=== PATIENT | male | born 1945 | race Caucasian/White ===

== ENCOUNTER → 2023-12-11 | Outpatient (CLI) | payer OTHER, SELFPAY ==
--- NOTE | 2023-12-11 08:39 | DI.ECHO.S_ITS ---
[facility] : : [address] : : [place] : : [id number] : : Phone: [phone] Echocardiogram Report + + :Name: BOLA SWARTZ Study Date: 12/11/2023 Height: 70 in : :[facility] ReadingLocation: Weight: 238 lb : : Gender: Male BSA: 2.2 m2 : :: 1945 Age: 78 yrs BP: 117/66 mmHg: :Reason For Study: CORONARY ARTERY DISEASE : :Ordering Physician: ZOHRA, : :DILIP Performed By: Kelsea Grigsby : :Referring: LEAH RUANO : + + Interpretation Summary Largely normal echocardiogram with minimal age related changes. Normal biventricular size and function with normal echocardiogram. No significant valvular abnormalities. No previous echo images are available for comparison. Procedure: A two-dimensional transthoracic echocardiogram with color flow and Doppler was performed. The study quality was technically adequate. There is no prior echocardiogram noted for this patient. A contrast injection of Definity was performed to improve assessment of LV function. The patient was in sinus bradycardia with heart rates between 55-63 bpm during the exam. Left Ventricle: The left ventricle is normal in size and wall thickness. The ejection fraction is estimated to be 60-65%. Left ventricular wall motion is normal. Right Ventricle: The right ventricle is normal in size and function. There is normal right ventricular wall thickness. The right ventricular systolic function is normal. Atria: The left atrial size is normal. Right atrial size is normal. There is no Doppler evidence for an interatrial shunt. Mitral Valve: The mitral valve is normal in structure and function. There is no mitral regurgitation noted. Aortic Valve: The aortic valve is trileaflet. The aortic valve opens well. There is no aortic valve stenosis. No aortic regurgitation is present. Tricuspid Valve: The tricuspid valve is normal in structure and function. There is trace tricuspid regurgitation. Pulmonary artery pressures cannot be estimated because of the lack of a measurable TR jet velocity. Pulmonic Valve: The pulmonic valve leaflets are thin and pliable; valve motion is normal. There is trace pulmonic regurgitation. Great Vessels: The aortic root is normal size. The dimensions of the ascending aorta are normal. The IVC is of normal diameter and collapses greater than 50% with a sniff. This suggests a low right atrial pressure of 3 mm Hg. Pericardium/ Pleura There is no pericardial effusion. There is no pleural effusion. MMode/2D Measurements & Calculations LVIDd: 4.3 cm LVOT diam: 2.1 cm LVIDs: 3.0 cm Ao root diam: 2.8 cm FS: 31.2 % asc Aorta Diam: 3.5 cm IVSd: 1.0 cm Ao Arch Diam (Prox Trans): 3.3 cm LVPWd: 0.96 cm LV alvarez. diameter/BSA (cm/m^2): 1.9 LV sys. diameter/BSA (cm/m^2): 1.3 LA A2 area: 19.8 cm2 RA long axis: 4.6 cm LA A4 area: 16.5 cm2 RA area: 11.8 cm2 LA length (vol): 4.8 cm RA vol: 25.9 ml LA vol: 58.5 ml RA : 11.5 ml/m2 LA vol index: 26.0 ml/m2 IVC diam: 1.9 cm RVD1 (basal): 2.9 cm RVD2 (mid): 2.5 cm TAPSE: 1.7 cm Doppler Measurements & Calculations Ao V2 max: 162.7 cm/sec LVOT Max Joshua: 125.8 cm/sec Ao V2 mean: 113.6 cm/sec LV V1 max P.3 mmHg Ao max P.6 mmHg LV V1 VTI: 31.6 cm Ao mean P.7 mmHg JEREMIAH(I,D): 2.9 cm2 Ao V2 VTI: 36.3 cm JEREMIAH(V,D): 2.6 cm2 sev ratio: 0.87 JEREMIAH indexed to BSA (cm^2/m^2): 1.3 MV E max joshua: 78.4 cm/sec PA V2 max: 97.6 cm/sec MV A max joshua: 62.4 cm/sec PA V2 mean: 73.4 cm/sec MV E/A: 1.3 PA mean P.3 mmHg Med Peak E' Joshua: 8.4 cm/sec PA pr(Accel): 43.0 mmHg E/E' med: 9.3 Lat Peak E' Joshua: 8.7 cm/sec E/E' lat: 9.0 E/e' average: 9.2 MV dec time: 0.17 sec [facility]): 105.7 ml Reading Physician:WHITLEY
== END ==
LOC: ECHO 07:59
PROVIDERS: Referring Provider Chiropractor; Visit Provider Chiropractor
DX: I25.10 Atherosclerotic heart disease of native coronary artery without angina pectoris (principal)
CPT/HCPCS: C8929; Q9957